=== PATIENT | male | born 1960 | race Two or more races ===

== ENCOUNTER 2021-08-24 05:48 | Day surgery (SDC) | payer OTHER | END 2021-08-24 14:26 | disposition home or self-care (01) | LOC: CIR.AMB 05:48 | PROVIDERS: ATTEND Orthopaedic Surgery Hand Surgery | DX: S52.531A Colles' fracture of right radius, initial encounter for closed fracture (principal); Z20.822 Contact with and (suspected) exposure to COVID-19 | CPT/HCPCS: 25609; C1776; 25280; 25118 ==

== ENCOUNTER 2022-03-29 05:16 | Day surgery (SDC) | payer OTHER ==
[~2022-03-29 05:16] MED LIST: PERCOC PO; ULTRAM50 MG PO
== END 2022-03-29 12:50 | disposition home or self-care (01) ==
LOC: CIR.AMB 05:16
PROVIDERS: ATTEND Orthopaedic Surgery Hand Surgery
DX: S52.531A Colles' fracture of right radius, initial encounter for closed fracture (principal); Z20.822 Contact with and (suspected) exposure to COVID-19; J45.909 Unspecified asthma, uncomplicated; Z71.6 Tobacco abuse counseling; F17.210 Nicotine dependence, cigarettes, uncomplicated

== ENCOUNTER 2023-05-12 06:00 | Day surgery (SDC) | payer OTHER ==
[~2023-05-12] VITALS: Ht 180.3 cm; Wt 65.8 kg
[2023-05-12] MEDS ORDERED: CEPHALEXIN500 MG PO (10:31)
[2023-05-12] MEDS ORDERED: CILOXAN5 ML OTIC (10:31)
== END 2023-05-12 12:50 | disposition home or self-care (01) ==
LOC: CIR.AMB 06:00
PROVIDERS: ATTEND Otolaryngology Otology & Neurotology
DX: H71.22 Cholesteatoma of mastoid, left ear (principal); H72.02 Central perforation of tympanic membrane, left ear; Z20.822 Contact with and (suspected) exposure to COVID-19